=== PATIENT | female | born 1945 | race Caucasian/White ===

== ENCOUNTER → 2017-01-17 | Outpatient (CLI) | payer MEDICARE, OTHER ==
--- NOTE | 2017-01-17 11:04 | KCIC ---
PROCEDURE Left lower extremity venous Doppler sonogram. HISTORY Swelling. TECHNIQUE Grayscale and color Doppler sonographic imaging of the left lower extremity veins with spectral waveform analysis was performed. COMPARISON None. FINDINGS There is normal color flow, normal compressibility and there are normal spectral waveforms within the left lower extremity veins. There is a prominent left inguinal lymph node with benign appearing fatty hilum measuring 2.4 x 1.9 x 1.1 cm. IMPRESSION 1. No Doppler evidence of left lower extremity venous thrombosis. 2. Prominent benign-appearing left inguinal lymph node. Electronically signed by: Christina Acosta (Jan 17, 2017 11:02:25)
== END | disposition home or self-care (01) ==
LOC: KCIC US 09:50
PROVIDERS: ATTEND Family Medicine
DX: M79.89 Other specified soft tissue disorders (principal)
CPT/HCPCS: 93971

== ENCOUNTER → 2017-02-22 | Outpatient (CLI) | payer MEDICARE, OTHER ==
--- NOTE | 2017-02-22 10:57 | KCIC ---
EXAM: Abdomen and pelvis CT without intravenous contrast. HISTORY: Pelvic lymphadenopathy. TECHNIQUE: Computed tomographic images of the abdomen and pelvis were obtained without contrast. Multiplanar reformatting was performed. *One or more of the following individualized dose reduction techniques were utilized for this examination: 1. Automated exposure control. 2. Adjustment of the mA and/or kV according to patient size. 3. Use of iterative reconstruction technique. COMPARISON: Lower extremity venous Doppler sonogram dated 01/17/2017. FINDINGS: Evaluation of the lower thorax demonstrates a 3 mm groundglass nodular opacity within the right lobe along the pleural fissure, likely a benign fissural lymph node. No suspicious nodule is seen. There is no infiltrate or effusion. There is suspected hepatic steatosis and mild hepatomegaly. The gallbladder, pancreas, spleen and adrenal glands are unremarkable. There is a 7.1 cm cyst with possible thin internal septation within the lower pole of the right kidney. There is a 9 mm fat density lesion within the upper pole the left kidney, likely angiomyolipoma. There is a punctate calcification within the lower pole the right kidney. There is no appendicitis. There is extensive colonic diverticulosis without evidence of diverticulitis. There is moderate colonic stool. There is no evidence of bowel obstruction. The uterus, ovaries and bladder are unremarkable on this noncontrast exam. There are multiple pelvic phleboliths. There are prominent mesenteric, retroperitoneal and iliac chain lymph nodes, possibly physiologic or reactive. There are also prominent inguinal lymph nodes. These demonstrate benign-appearing fatty dann. No lymph node with suspicious morphology is seen. There is degenerative change throughout the spine. There is no suspicious osseous lesion. IMPRESSION: 1. Multiple prominent mesenteric, retroperitoneal, iliac chain and inguinal lymph nodes. These are nonspecific and not clearly pathologically enlarged. The inguinal lymph nodes demonstrate benign-appearing fatty dann. Follow-up can be performed if there is continuing clinical concern. 2. Hepatomegaly and hepatic steatosis. 3. Extensive colonic diverticulosis without diverticulitis. 4. 7.1 cm cyst within the lower pole of the right kidney. This may contain a thin internal septation. Renal sonography can be performed to confirm benignity. There is a punctate nonobstructing calcification along the cyst wall. 5. 9 mm fat density lesion within the upper pole the left kidney, possibly an angiomyolipoma. Once again, renal sonography or a renal protocol CT or MRI can be performed to confirm benignity. Electronically signed by: Christina Acosta MD (02/22/2017 10:53 AM)
== END | disposition home or self-care (01) ==
LOC: KCIC CT 09:01
PROVIDERS: ATTEND Family Medicine
DX: R59.0 Localized enlarged lymph nodes (principal)
CPT/HCPCS: 74176

== ENCOUNTER → 2017-02-28 | Outpatient (CLI) | payer MEDICARE, OTHER ==
--- NOTE | 2017-02-28 10:53 | KCIC ---
Exam: Renal ultrasound Indication: Abnormality on CT Technique: Multiple realtime grayscale sonographic images were obtained over the abdomen. Static images were submitted for interpretation. Comparisons: CT abdomen and pelvis from February 22, 2017 Findings: The Right kidney is normal in size measuring 13.5 x 4.5 x 5.0cm. There is a lower pole cyst that measures 6.3 x 6.1 x 5.9 cm and demonstrates some internal septation and minimal calcification.. The Left kidney is normal in size measuring 13.2 x 4.8 x 5.4cm. There is a echogenic mass in the upper pole and measures 1.5 x 1.0 x 1.3 cm. The abdominal aorta is normal in caliber. The IVC is patent. No ascites is identified The urinary bladder is normal Impression: There is a 1.5 cm echogenic mass in the upper pole left kidney most consistent with an angiomyolipoma. There is a 6.3 cm mildly complex cyst in the lower pole right kidney. This is Bosniak category 2F and follow-up is recommended. Electronically signed by: Chito Márquez MD (02/28/2017 10:51 AM)
== END | disposition home or self-care (01) ==
LOC: KCIC US 09:33
PROVIDERS: ATTEND Family Medicine
DX: N28.1 Cyst of kidney, acquired (principal); R93.8 Abnormal findings on diagnostic imaging of other specified body structures
CPT/HCPCS: 76770

== ENCOUNTER → 2017-10-28 | Outpatient (CLI) | payer MEDICARE, OTHER | END | disposition home or self-care (01) | LOC: US 08:34 | DX: N28.1 Cyst of kidney, acquired (principal) | CPT/HCPCS: 76770 ==

== ENCOUNTER → 2020-07-06 | Outpatient (CLI) | payer MEDICARE ==
--- NOTE | 2020-07-06 16:52 | RAD ---
Examination: 1. Ultrasound-guided right breast biopsy. 2. Right postprocedure mammogram INDICATION: 74-year-old woman with a suspicious mass in the right breast recommended for biopsy. COMPARISON: Right breast ultrasound of 06/16/2020 and bilateral screening mammogram of 06/16/2020 TECHNIQUE AND FINDINGS: An appropriate procedural pause was observed after informed consent was obtained. Standard sterile technique, ultrasound guidance and local anesthesia was utilized in advancing a 14-gauge spring-loaded core needle biopsy device into the right breast at the 11:00 position 4 cm from the nipple where 3 samples were obtained of the 12 mm mass and placed in formalin. An open padlock-shaped biopsy marker was deployed at the biopsy site and hemostasis was ensured with direct breast compression for 10 minutes. Puncture site was then dressed and a postprocedure mammogram obtained showing satisfactory deployment of the open padlock shaped biopsy marker in the anterior upper outer right breast. No postbiopsy hematoma. No apparent complications. Patient tolerated the procedure without incident. Post procedure instructions reviewed in a patient discharged in stable condition to follow up with her referring physician. IMPRESSION: Successful ultrasound-guided right breast core needle biopsy of a suspicious 1.2 cm mass in the right breast 11:00 position 4 cm from the nipple. Pathology results pending. An addendum will be issued once pathology results become available. Electronically signed by: Ghassan Vasques MD (07/06/2020 4:49 PM) [id number]
--- NOTE | 2020-07-11 13:08 | PATHOLOGY ---
[facility] Accession Number: [id number] . 01 Material submitted: . breast - RIGHT BREAST TISSUE 11:00 4CMFN. Modifiers: right, 11:00 . 01 Clinical history: . RIGHT BREAST MASS 11:00 4CMFN, ABNORMAL MAMMOGRAM RIGHT BREAST . 02 Diagnosis: Breast "mass 11:00 - 4 cm FN", needle biopsy: - INVASIVE MAMMARY CARCINOMA, WITH DUCTAL AND LOBULAR FEATURES (LOW GRADE, TOTAL SCORE 5/9). - DUCTAL CARCINOMA IN SITU (DCIS), SOLID TYPE (LOW GRADE, I/III) - Tumor span 7 mm. - Histologic grade (tubular differentation - score 2, nuclear pleomorphism - score 2, mitotic activity - score 1). - Focal microcalcification. . . Block A1 is sent for tumor biomarkers and the results will be the subject of a supplemental report. (MLK:felicity; 07/07/2020) S 07/11/2020 1259 Local . 02 Comment: The case is seen in co-review with Dr. Diana Lerner. Dr. Gonsalves is informed of the results on 07/11/2020. (MLK:felicity; 07/07/2020) . 02 Electronically signed: . Analilia Mcintosh MD, Pathologist NPI- [id number] . 01 Gross description: . The specimen is received in formalin, labeled "Ranjana Olivas, right breast 11:00 4 cm from nipple". Received are multiple needle cores of fibrofatty tissue measuring 1.3 x 0.6 x 0.2 cm in aggregate dimensions. The specimen is submitted entirely in cassettes A1 through A3. The cold ischemic time is 1 minute. The total formalin fixation time is 12 hours and 32 minutes. (CAA; 07/06/2020) QAC/QAC 07/06/2020 1721 Local . 02 Pathologist provided ICD-10: C50.911, D05.11 . 02 CPT . 169625 Specimen Comment: A courtesy copy of this report has been sent to [phone], [phone] Specimen Comment: [id number], Specimen Comment: Report sent to ,DR GONSALVES / DR WOOTEN Performed at: [address], [place] [id number] MD Jewel Stone MD Phone: [phone] [facility]formed at: [facility] [address] [place] [id number] MD Urbano Aguirre MD Phone: [phone]
== END ==
LOC: US 07:52
PROVIDERS: ATTEND Surgery
DX: C50.911 Malignant neoplasm of unspecified site of right female breast (principal); R92.8 Other abnormal and inconclusive findings on diagnostic imaging of breast; Z79.899 Other long term (current) drug therapy
CPT/HCPCS: 19083; 76942; 77065; 88305

== ENCOUNTER → 2020-08-05 | Outpatient (CLI) | payer MEDICARE ==
[~2020-08-05] MED LIST: ALLO100T PO; AMLO-187 PO; ASPI-630 PO; BENA1TAB6 PO; CHOL500050 PO; GLIP5TAB22 PO; METF750T39 PO; METO-247 PO
== END ==
LOC: LAB 13:58
PROVIDERS: ATTEND Surgery
DX: Z01.812 Encounter for preprocedural laboratory examination (principal); C50.911 Malignant neoplasm of unspecified site of right female breast; Z20.828 Contact with and (suspected) exposure to other viral communicable diseases
CPT/HCPCS: U0003

== ENCOUNTER → 2020-09-15 | Outpatient (CLI) | payer MEDICARE ==
[2020-09-06 10:41] VITALS: BP 126/72
[~2020-09-15] MED LIST changes: +HYDR-2761 PO
--- NOTE | 2020-09-15 13:04 | CARD ---
MR#: [id number] Date of Study: 09/15/2020 Ordering Physician: CRESENCIO PIERCE, Referring Physician: CRESENCIO PIERCE, Tech: Marleen Bagley [facility] APPROVED REPORT EXAM: Two-dimensional and M-mode echocardiogram with Doppler and color Doppler. Other Information Quality : Fair INDICATION Breast Cancer s/p Right Mastectomy 2D DIMENSIONS Left Atrium(2D)2.8 (1.6-4.0cm)IVSd1.0 (0.7-1.1cm) Aortic Root(2D)3.1 (2.0-3.7cm)LVDd4.6 (3.9-5.9cm) LVOT Diameter2.1 (1.8-2.4cm)PWd1.0 (0.7-1.1cm) LVDs3.4 (2.5-4.0cm)FS (%) 25.8 % SV50.4 mlLVEF(%)50.8 (>50%) Aortic Valve AoV Peak Yared.178.4cm/sAoV VTI31.4cm AO Peak GR.12.7mmHgLVOT Peak Yared.161.9cm/s LVOT VTI 32.15cmAO Mean GR.6mmHg WALTER (VMAX)3.86gg2BIB (VTI)3.55cm2 Mitral Valve MV E Cklowdfb55.7cm/sMV DECEL YAOT187kq MV A Dojetbzq94.1cm/sMV BCT53ff E/A Ratio0.7MVA (PHT)3.64cm2 TDI E/Lateral E'10.8E/Medial E'10.6 Tricuspid Valve TR P. Nrudmegk881ci/sRAP QWVXNLFS4cbGk TR Peak Gr.50veFvLTBO24sxHo Pulmonary Vein S1 Tzkhgqyp38.6cm/sD2 Ogvryips33.5cm/s LEFT VENTRICLE The left ventricle is normal size. There is normal left ventricular wall thickness. The left ventricu lar systolic function is normal. The Ejection Fraction is 55-60%. There is normal LV segmental wall m otion. Transmitral Doppler flow pattern is Grade I-abnormal relaxation pattern. RIGHT VENTRICLE The right ventricle is normal size. The right ventricular systolic function is normal. ATRIA The left atrium size is normal. The right atrium size is normal. The interatrial septum is intact wit h no evidence for an atrial septal defect or patent foramen ovale as noted on 2-D or Doppler imaging. AORTIC VALVE The aortic valve is calcified but difficult to visualize. Doppler and Color Flow revealed no signific ant aortic regurgitation. There is no aortic valvular vegetation. MITRAL VALVE The mitral valve is calcified but opens well. There is no evidence of mitral valve prolapse. There is no mitral valve stenosis. Doppler and Color-flow revealed trace mitral regurgitation. TRICUSPID VALVE The tricuspid valve is normal in structure and function. Doppler and Color Flow revealed trace tricus pid regurgitation. The PA pressure was estimated at 25 mmHg. There is no tricuspid valve stenosis. PULMONIC VALVE The pulmonic valve is not well visualized. Doppler and Color Flow revealed no pulmonic valvular regur gitation. There is no pulmonic valvular stenosis. GREAT VESSELS The aortic root is normal in size. The ascending aorta is mildly dilated at 3.5 cm. The IVC is normal in size and collapses >50% with inspiration. PERICARDIAL EFFUSION There is no evidence of significant pericardial effusion. Critical Notification Critical Value: No <Conclusion> The left ventricular systolic function is normal. The Ejection Fraction is 55-60%. There is normal LV segmental wall motion. Transmitral Doppler flow pattern is Grade I-abnormal relaxation pattern. Trace mitral regurgitation. Trace tricuspid regurgitation. The PA pressure was estimated at 25 mmHg. There is no evidence of significant pericardial effusion. Signed by : Wander Zarco, Electronically Approved : 09/15/2020 13:03:56
== END ==
LOC: CARD 10:51
PROVIDERS: ATTEND Internal Medicine Hematology & Oncology
DX: I08.0 Rheumatic disorders of both mitral and aortic valves (principal); I77.810 Thoracic aortic ectasia; Z85.3 Personal history of malignant neoplasm of breast
CPT/HCPCS: 93306

== ENCOUNTER → 2020-09-19 | Outpatient (CLI) | payer MEDICARE ==
[2020-09-06 10:41] VITALS: BP 126/72
[2020-09-19 10:59] LABS: BASO # 0.1 x10^3/uL (0.0-0.2); BASO % 1 % (0-3); EOS # 0.3 x10^3/uL (0.0-0.7); EOS % 4 % (0-3); HEMATOCRIT 38.1 % (36.0-47.0); LYMPH # 1.9 x10^3/uL (1.0-4.8); LYMPH % 23 % (24-48); MEAN CORPUSCULAR HEMOGLOBIN 31 pg (25-35); MEAN CORPUSCULAR HGB CONC 34 g/dL (31-37); MEAN CORPUSCULAR VOLUME 89 fL (79-100); MONO # 0.4 x10^3/uL (0.0-1.1); MONO % 5 % (0-9); NEUT # 5.5 x10^3/uL (1.8-7.7); NEUT % 67 % (31-73); PLATELET COUNT 251 x10^3/uL (140-400); RED BLOOD COUNT 4.26 x10^6/uL (3.50-5.40); RED CELL DISTRIBUTION WIDTH 13.9 % (11.5-14.5); WHITE BLOOD COUNT 8.2 x10^3/uL (4.0-11.0)
[2020-09-19 11:16] LABS: CALCIUM 9.3 mg/dL (8.5-10.1); CREATININE 0.9 mg/dL (0.6-1.0); GFR 61.4; POTASSIUM 3.2 mmol/L (3.5-5.1)
[2020-09-19 11:23] LABS: ALBUMIN 3.3 g/dL (3.4-5.0); ALBUMIN/GLOBULIN RATIO 0.9 (1.0-1.7); TOTAL PROTEIN 6.8 g/dL (6.4-8.2)
== END ==
LOC: ONCLAB 10:49
PROVIDERS: ATTEND Internal Medicine Hematology & Oncology
DX: C50.411 Malignant neoplasm of upper-outer quadrant of right female breast (principal)
CPT/HCPCS: 36415; 80053; 85025

== ENCOUNTER → 2020-10-12 | Outpatient (CLI) | payer MEDICARE ==
[2020-09-06 10:41] VITALS: BP 126/72
[2020-10-12 10:54] LABS: BASO % 1 % (0-3); EOS # 0.2 x10^3/uL (0.0-0.7); EOS % 3 % (0-3); HEMATOCRIT 40.9 % (36.0-47.0); HEMOGLOBIN 13.5 g/dL (12.0-15.5); LYMPH # 1.9 x10^3/uL (1.0-4.8); LYMPH % 28 % (24-48); MEAN CORPUSCULAR HEMOGLOBIN 30 pg (25-35); MEAN CORPUSCULAR HGB CONC 33 g/dL (31-37); MEAN CORPUSCULAR VOLUME 90 fL (79-100); MONO # 0.5 x10^3/uL (0.0-1.1); MONO % 7 % (0-9); NEUT # 4.3 x10^3/uL (1.8-7.7); NEUT % 62 % (31-73); PLATELET COUNT 245 x10^3/uL (140-400); RED BLOOD COUNT 4.55 x10^6/uL (3.50-5.40); RED CELL DISTRIBUTION WIDTH 13.9 % (11.5-14.5); WHITE BLOOD COUNT 6.9 x10^3/uL (4.0-11.0)
[2020-10-12 11:00] LABS: CALCIUM 9.6 mg/dL (8.5-10.1); GFR 54.3; POTASSIUM 3.2 mmol/L (3.5-5.1)
[2020-10-12 11:05] LABS: ALBUMIN 3.7 g/dL (3.4-5.0); TOTAL BILIRUBIN 1.7 mg/dL (0.2-1.0); TOTAL PROTEIN 7.3 g/dL (6.4-8.2)
== END ==
LOC: ONCLAB 10:38
PROVIDERS: ATTEND Internal Medicine Hematology & Oncology
DX: C50.411 Malignant neoplasm of upper-outer quadrant of right female breast (principal)
CPT/HCPCS: 36415; 80053; 85025

== ENCOUNTER → 2020-10-19 | Outpatient (CLI) | payer MEDICARE ==
[2020-09-06 10:41] VITALS: BP 126/72
[2020-10-19 09:40] LABS: BASO # 0.1 x10^3/uL (0.0-0.2); BASO % 1 % (0-3); EOS # 0.2 x10^3/uL (0.0-0.7); EOS % 3 % (0-3); HEMATOCRIT 37.1 % (36.0-47.0); HEMOGLOBIN 12.4 g/dL (12.0-15.5); LYMPH # 1.6 x10^3/uL (1.0-4.8); LYMPH % 30 % (24-48); MEAN CORPUSCULAR HEMOGLOBIN 30 pg (25-35); MEAN CORPUSCULAR HGB CONC 33 g/dL (31-37); MEAN CORPUSCULAR VOLUME 89 fL (79-100); MONO # 0.2 x10^3/uL (0.0-1.1); MONO % 3 % (0-9); NEUT # 3.4 x10^3/uL (1.8-7.7); NEUT % 62 % (31-73); PLATELET COUNT 229 x10^3/uL (140-400); RED BLOOD COUNT 4.16 x10^6/uL (3.50-5.40); RED CELL DISTRIBUTION WIDTH 13.3 % (11.5-14.5); WHITE BLOOD COUNT 5.4 x10^3/uL (4.0-11.0)
[2020-10-19 09:56] LABS: CALCIUM 9.4 mg/dL (8.5-10.1); CREATININE 0.9 mg/dL (0.6-1.0); GFR 61.4; POTASSIUM 3.4 mmol/L (3.5-5.1)
[2020-10-19 10:03] LABS: ALBUMIN 3.5 g/dL (3.4-5.0); TOTAL BILIRUBIN 1.4 mg/dL (0.2-1.0); TOTAL PROTEIN 6.9 g/dL (6.4-8.2)
== END ==
LOC: ONCLAB 09:24
PROVIDERS: ATTEND Internal Medicine Hematology & Oncology
DX: C50.411 Malignant neoplasm of upper-outer quadrant of right female breast (principal)
CPT/HCPCS: 36415; 80053; 85025

== ENCOUNTER → 2020-10-26 | Outpatient (CLI) | payer MEDICARE ==
[2020-09-06 10:41] VITALS: BP 126/72
[2020-10-26 09:52] LABS: BASO % 1 % (0-3); EOS # 0.1 x10^3/uL (0.0-0.7); EOS % 4 % (0-3); HEMATOCRIT 36.6 % (36.0-47.0); HEMOGLOBIN 12.1 g/dL (12.0-15.5); LYMPH # 1.4 x10^3/uL (1.0-4.8); LYMPH % 35 % (24-48); MEAN CORPUSCULAR HEMOGLOBIN 30 pg (25-35); MEAN CORPUSCULAR HGB CONC 33 g/dL (31-37); MEAN CORPUSCULAR VOLUME 91 fL (79-100); MONO # 0.3 x10^3/uL (0.0-1.1); MONO % 7 % (0-9); NEUT # 2.2 x10^3/uL (1.8-7.7); NEUT % 53 % (31-73); PLATELET COUNT 234 x10^3/uL (140-400); RED BLOOD COUNT 4.05 x10^6/uL (3.50-5.40); WHITE BLOOD COUNT 4.1 x10^3/uL (4.0-11.0)
[2020-10-26 09:58] LABS: CALCIUM 8.9 mg/dL (8.5-10.1); CREATININE 0.9 mg/dL (0.6-1.0); GFR 61.4; POTASSIUM 3.1 mmol/L (3.5-5.1)
[2020-10-26 10:05] LABS: ALBUMIN 3.4 g/dL (3.4-5.0); ALBUMIN/GLOBULIN RATIO 1.1 (1.0-1.7); TOTAL PROTEIN 6.6 g/dL (6.4-8.2)
== END ==
LOC: ONCLAB 08:30
PROVIDERS: ATTEND Physician Assistant
DX: C50.411 Malignant neoplasm of upper-outer quadrant of right female breast (principal)
CPT/HCPCS: 36415; 80053; 85025

== ENCOUNTER → 2020-10-26 | Outpatient (CLI) | payer MEDICARE ==
[2020-09-06 10:41] VITALS: BP 126/72
[2020-10-26 10:05] LABS: ALBUMIN 3.4 g/dL (3.4-5.0); CREATININE 0.9 mg/dL (0.6-1.0); GFR 61.4; PHOSPHORUS 2.9 mg/dL (2.6-4.7); POTASSIUM 3.1 mmol/L (3.5-5.1)
[2020-10-26 10:06] LABS: CALCIUM 8.9 mg/dL (8.5-10.1)
[2020-10-26 11:21] LABS: CREATININE,RANDOM URINE 89.6 mg/dL (Not Establ.)
== END ==
LOC: SPEC 09:10
PROVIDERS: ATTEND Nurse Practitioner Adult Health
DX: E11.21 Type 2 diabetes mellitus with diabetic nephropathy (principal); N28.1 Cyst of kidney, acquired; I10 Essential (primary) hypertension; R80.9 Proteinuria, unspecified; Z68.32 Body mass index [BMI] 32.0-32.9, adult
CPT/HCPCS: 36415; 80069; 82570; 84156

== ENCOUNTER → 2020-11-02 | Outpatient (CLI) | payer MEDICARE ==
[2020-09-06 10:41] VITALS: BP 126/72
[2020-11-02 09:22] LABS: BASO % 1 % (0-3); EOS # 0.1 x10^3/uL (0.0-0.7); EOS % 2 % (0-3); HEMATOCRIT 37.8 % (36.0-47.0); HEMOGLOBIN 12.6 g/dL (12.0-15.5); LYMPH # 1.6 x10^3/uL (1.0-4.8); LYMPH % 35 % (24-48); MEAN CORPUSCULAR HEMOGLOBIN 30 pg (25-35); MEAN CORPUSCULAR HGB CONC 33 g/dL (31-37); MEAN CORPUSCULAR VOLUME 90 fL (79-100); MONO # 0.3 x10^3/uL (0.0-1.1); MONO % 7 % (0-9); NEUT # 2.6 x10^3/uL (1.8-7.7); NEUT % 56 % (31-73); PLATELET COUNT 277 x10^3/uL (140-400); RED BLOOD COUNT 4.19 x10^6/uL (3.50-5.40); RED CELL DISTRIBUTION WIDTH 14.5 % (11.5-14.5); WHITE BLOOD COUNT 4.7 x10^3/uL (4.0-11.0)
[2020-11-02 09:28] LABS: CALCIUM 9.3 mg/dL (8.5-10.1); CREATININE 0.8 mg/dL (0.6-1.0); GFR 70.3; POTASSIUM 3.7 mmol/L (3.5-5.1)
[2020-11-02 09:36] LABS: ALBUMIN 3.5 g/dL (3.4-5.0); ALBUMIN/GLOBULIN RATIO 1.1 (1.0-1.7); TOTAL BILIRUBIN 1.1 mg/dL (0.2-1.0); TOTAL PROTEIN 6.7 g/dL (6.4-8.2)
== END ==
LOC: ONCLAB 08:50
PROVIDERS: ATTEND Internal Medicine Hematology & Oncology
DX: C50.411 Malignant neoplasm of upper-outer quadrant of right female breast (principal)
CPT/HCPCS: 36415; 80053; 85025

== ENCOUNTER → 2020-11-09 | Outpatient (CLI) | payer MEDICARE ==
[2020-09-06 10:41] VITALS: BP 126/72
[2020-11-09 10:22] LABS: CALCIUM 9.4 mg/dL (8.5-10.1); GFR 54.3; POTASSIUM 3.6 mmol/L (3.5-5.1)
[2020-11-09 10:28] LABS: ALBUMIN 3.4 g/dL (3.4-5.0); ALBUMIN/GLOBULIN RATIO 1.1 (1.0-1.7); TOTAL BILIRUBIN 1.1 mg/dL (0.2-1.0); TOTAL PROTEIN 6.6 g/dL (6.4-8.2)
[2020-11-09 10:29] LABS: BASO % 1 % (0-3); EOS # 0.1 x10^3/uL (0.0-0.7); EOS % 2 % (0-3); HEMATOCRIT 37.4 % (36.0-47.0); HEMOGLOBIN 12.3 g/dL (12.0-15.5); LYMPH # 1.6 x10^3/uL (1.0-4.8); LYMPH % 34 % (24-48); MEAN CORPUSCULAR HEMOGLOBIN 30 pg (25-35); MEAN CORPUSCULAR HGB CONC 33 g/dL (31-37); MEAN CORPUSCULAR VOLUME 91 fL (79-100); MONO # 0.3 x10^3/uL (0.0-1.1); MONO % 7 % (0-9); NEUT # 2.7 x10^3/uL (1.8-7.7); NEUT % 57 % (31-73); PLATELET COUNT 238 x10^3/uL (140-400); RED BLOOD COUNT 4.11 x10^6/uL (3.50-5.40); RED CELL DISTRIBUTION WIDTH 14.9 % (11.5-14.5); WHITE BLOOD COUNT 4.8 x10^3/uL (4.0-11.0)
== END ==
LOC: ONCLAB 09:45
PROVIDERS: ATTEND Internal Medicine Hematology & Oncology
DX: C50.411 Malignant neoplasm of upper-outer quadrant of right female breast (principal)
CPT/HCPCS: 36415; 80053; 85025

== ENCOUNTER → 2020-11-16 | Outpatient (CLI) | payer MEDICARE ==
[2020-09-06 10:41] VITALS: BP 126/72
[2020-11-16 09:11] LABS: BASO % 1 % (0-3); EOS # 0.1 x10^3/uL (0.0-0.7); EOS % 2 % (0-3); HEMATOCRIT 37.9 % (36.0-47.0); HEMOGLOBIN 12.5 g/dL (12.0-15.5); LYMPH # 1.4 x10^3/uL (1.0-4.8); LYMPH % 32 % (24-48); MEAN CORPUSCULAR HEMOGLOBIN 30 pg (25-35); MEAN CORPUSCULAR HGB CONC 33 g/dL (31-37); MEAN CORPUSCULAR VOLUME 91 fL (79-100); MONO # 0.3 x10^3/uL (0.0-1.1); MONO % 8 % (0-9); NEUT # 2.4 x10^3/uL (1.8-7.7); NEUT % 57 % (31-73); PLATELET COUNT 223 x10^3/uL (140-400); RED BLOOD COUNT 4.15 x10^6/uL (3.50-5.40); RED CELL DISTRIBUTION WIDTH 15.1 % (11.5-14.5); WHITE BLOOD COUNT 4.3 x10^3/uL (4.0-11.0)
[2020-11-16 09:26] LABS: CREATININE 0.9 mg/dL (0.6-1.0); GFR 61.4; POTASSIUM 3.4 mmol/L (3.5-5.1)
[2020-11-16 09:33] LABS: ALBUMIN 3.5 g/dL (3.4-5.0); ALBUMIN/GLOBULIN RATIO 1.1 (1.0-1.7); TOTAL BILIRUBIN 1.2 mg/dL (0.2-1.0); TOTAL PROTEIN 6.7 g/dL (6.4-8.2)
== END ==
LOC: ONCLAB 08:41
PROVIDERS: ATTEND Internal Medicine Hematology & Oncology
DX: C50.411 Malignant neoplasm of upper-outer quadrant of right female breast (principal)
CPT/HCPCS: 36415; 80053; 85025

== ENCOUNTER → 2020-11-16 | Outpatient (CLI) | payer MEDICARE ==
[2020-09-06 10:41] VITALS: BP 126/72
[2020-11-16 09:13] LABS: BASO % 1 % (0-3); EOS # 0.1 x10^3/uL (0.0-0.7); EOS % 2 % (0-3); HEMATOCRIT 37.3 % (36.0-47.0); HEMOGLOBIN 12.8 g/dL (12.0-15.5); LYMPH # 1.4 x10^3/uL (1.0-4.8); LYMPH % 32 % (24-48); MEAN CORPUSCULAR HEMOGLOBIN 31 pg (25-35); MEAN CORPUSCULAR HGB CONC 34 g/dL (31-37); MEAN CORPUSCULAR VOLUME 91 fL (79-100); MONO # 0.3 x10^3/uL (0.0-1.1); MONO % 7 % (0-9); NEUT # 2.5 x10^3/uL (1.8-7.7); NEUT % 58 % (31-73); PLATELET COUNT 219 x10^3/uL (140-400); RED CELL DISTRIBUTION WIDTH 15.5 % (11.5-14.5); WHITE BLOOD COUNT 4.3 x10^3/uL (4.0-11.0)
[2020-11-16 09:35] LABS: ALBUMIN 3.5 g/dL (3.4-5.0); ALBUMIN/GLOBULIN RATIO 1.1 (1.0-1.7); CALCIUM 8.9 mg/dL (8.5-10.1); CREATININE 0.9 mg/dL (0.6-1.0); GFR 61.4; POTASSIUM 3.5 mmol/L (3.5-5.1); TOTAL BILIRUBIN 1.2 mg/dL (0.2-1.0); TOTAL PROTEIN 6.8 g/dL (6.4-8.2)
[2020-11-17 03:13] LABS: HEMOGLOBIN A1C 5.9 % (4.8-5.6)
== END ==
LOC: SPEC 08:45
PROVIDERS: ATTEND Family Medicine
DX: E11.9 Type 2 diabetes mellitus without complications (principal); E55.9 Vitamin D deficiency, unspecified
CPT/HCPCS: 36415; 80053; 82306; 83036; 85025

== ENCOUNTER → 2020-11-23 | Outpatient (CLI) | payer MEDICARE ==
[2020-09-06 10:41] VITALS: BP 126/72
[2020-11-23 10:17] LABS: BASO % 1 % (0-3); EOS # 0.1 x10^3/uL (0.0-0.7); EOS % 2 % (0-3); HEMATOCRIT 36.6 % (36.0-47.0); HEMOGLOBIN 12.1 g/dL (12.0-15.5); LYMPH # 1.4 x10^3/uL (1.0-4.8); LYMPH % 31 % (24-48); MEAN CORPUSCULAR HEMOGLOBIN 30 pg (25-35); MEAN CORPUSCULAR HGB CONC 33 g/dL (31-37); MEAN CORPUSCULAR VOLUME 91 fL (79-100); MONO # 0.3 x10^3/uL (0.0-1.1); MONO % 7 % (0-9); NEUT # 2.7 x10^3/uL (1.8-7.7); NEUT % 59 % (31-73); PLATELET COUNT 236 x10^3/uL (140-400); RED BLOOD COUNT 4.02 x10^6/uL (3.50-5.40); RED CELL DISTRIBUTION WIDTH 15.6 % (11.5-14.5); WHITE BLOOD COUNT 4.6 x10^3/uL (4.0-11.0)
[2020-11-23 10:24] LABS: CALCIUM 8.9 mg/dL (8.5-10.1); GFR 54.3; POTASSIUM 3.4 mmol/L (3.5-5.1)
[2020-11-23 10:30] LABS: ALBUMIN 3.2 g/dL (3.4-5.0); TOTAL BILIRUBIN 1.1 mg/dL (0.2-1.0); TOTAL PROTEIN 6.3 g/dL (6.4-8.2)
== END ==
LOC: ONCLAB 09:59
PROVIDERS: ATTEND Internal Medicine Hematology & Oncology
DX: C50.411 Malignant neoplasm of upper-outer quadrant of right female breast (principal)
CPT/HCPCS: 36415; 80053; 85025

== ENCOUNTER → 2020-11-30 | Outpatient (CLI) | payer MEDICARE ==
[2020-09-06 10:41] VITALS: BP 126/72
[2020-11-30 09:27] LABS: BASO % 1 % (0-3); EOS # 0.1 x10^3/uL (0.0-0.7); EOS % 3 % (0-3); HEMATOCRIT 35.2 % (36.0-47.0); HEMOGLOBIN 11.8 g/dL (12.0-15.5); LYMPH # 1.4 x10^3/uL (1.0-4.8); LYMPH % 35 % (24-48); MEAN CORPUSCULAR HEMOGLOBIN 31 pg (25-35); MEAN CORPUSCULAR HGB CONC 34 g/dL (31-37); MEAN CORPUSCULAR VOLUME 91 fL (79-100); MONO # 0.3 x10^3/uL (0.0-1.1); MONO % 8 % (0-9); NEUT # 2.1 x10^3/uL (1.8-7.7); NEUT % 53 % (31-73); PLATELET COUNT 226 x10^3/uL (140-400); RED BLOOD COUNT 3.86 x10^6/uL (3.50-5.40); RED CELL DISTRIBUTION WIDTH 15.4 % (11.5-14.5)
[2020-11-30 09:41] LABS: CALCIUM 8.6 mg/dL (8.5-10.1); CREATININE 0.9 mg/dL (0.6-1.0); GFR 61.4; POTASSIUM 3.2 mmol/L (3.5-5.1)
[2020-11-30 09:48] LABS: ALBUMIN 3.3 g/dL (3.4-5.0); ALBUMIN/GLOBULIN RATIO 1.1 (1.0-1.7); TOTAL PROTEIN 6.2 g/dL (6.4-8.2)
== END ==
LOC: ONCLAB 09:10
PROVIDERS: ATTEND Internal Medicine Hematology & Oncology
DX: C50.411 Malignant neoplasm of upper-outer quadrant of right female breast (principal)
CPT/HCPCS: 36415; 80053; 85025

== ENCOUNTER → 2020-12-07 | Outpatient (CLI) | payer MEDICARE ==
[2020-09-06 10:41] VITALS: BP 126/72
[2020-12-07 10:35] LABS: BASO % 1 % (0-3); CALCIUM 8.7 mg/dL (8.5-10.1); CREATININE 1.1 mg/dL (0.6-1.0); EOS # 0.1 x10^3/uL (0.0-0.7); EOS % 2 % (0-3); GFR 48.6; HEMATOCRIT 35.3 % (36.0-47.0); HEMOGLOBIN 11.9 g/dL (12.0-15.5); LYMPH # 1.2 x10^3/uL (1.0-4.8); LYMPH % 30 % (24-48); MEAN CORPUSCULAR HEMOGLOBIN 31 pg (25-35); MEAN CORPUSCULAR HGB CONC 34 g/dL (31-37); MEAN CORPUSCULAR VOLUME 91 fL (79-100); MONO # 0.3 x10^3/uL (0.0-1.1); MONO % 8 % (0-9); NEUT # 2.5 x10^3/uL (1.8-7.7); NEUT % 60 % (31-73); PLATELET COUNT 227 x10^3/uL (140-400); POTASSIUM 3.3 mmol/L (3.5-5.1); RED CELL DISTRIBUTION WIDTH 16.1 % (11.5-14.5); WHITE BLOOD COUNT 4.1 x10^3/uL (4.0-11.0)
[2020-12-07 10:41] LABS: ALBUMIN 3.3 g/dL (3.4-5.0); ALBUMIN/GLOBULIN RATIO 1.1 (1.0-1.7); TOTAL BILIRUBIN 1.1 mg/dL (0.2-1.0); TOTAL PROTEIN 6.2 g/dL (6.4-8.2)
== END ==
LOC: ONCLAB 10:03
PROVIDERS: ATTEND Internal Medicine Hematology & Oncology
DX: C50.411 Malignant neoplasm of upper-outer quadrant of right female breast (principal)
CPT/HCPCS: 36415; 80053; 85025

== ENCOUNTER → 2020-12-14 | Outpatient (CLI) | payer MEDICARE ==
[2020-09-06 10:41] VITALS: BP 126/72
[2020-12-14 11:17] LABS: BASO % 1 % (0-3); EOS # 0.1 x10^3/uL (0.0-0.7); EOS % 2 % (0-3); HEMATOCRIT 36.1 % (36.0-47.0); HEMOGLOBIN 12.2 g/dL (12.0-15.5); LYMPH # 1.2 x10^3/uL (1.0-4.8); LYMPH % 26 % (24-48); MEAN CORPUSCULAR HEMOGLOBIN 31 pg (25-35); MEAN CORPUSCULAR HGB CONC 34 g/dL (31-37); MEAN CORPUSCULAR VOLUME 91 fL (79-100); MONO # 0.4 x10^3/uL (0.0-1.1); MONO % 8 % (0-9); NEUT % 64 % (31-73); PLATELET COUNT 230 x10^3/uL (140-400); RED BLOOD COUNT 3.98 x10^6/uL (3.50-5.40); RED CELL DISTRIBUTION WIDTH 15.9 % (11.5-14.5); WHITE BLOOD COUNT 4.7 x10^3/uL (4.0-11.0)
[2020-12-14 11:24] LABS: CALCIUM 8.7 mg/dL (8.5-10.1); GFR 54.2; POTASSIUM 3.3 mmol/L (3.5-5.1)
[2020-12-14 11:30] LABS: ALBUMIN 3.3 g/dL (3.4-5.0); ALBUMIN/GLOBULIN RATIO 1.1 (1.0-1.7); TOTAL BILIRUBIN 1.1 mg/dL (0.2-1.0); TOTAL PROTEIN 6.4 g/dL (6.4-8.2)
== END ==
LOC: ONCLAB 10:45
PROVIDERS: ATTEND Internal Medicine Hematology & Oncology
DX: C50.411 Malignant neoplasm of upper-outer quadrant of right female breast (principal)
CPT/HCPCS: 36415; 80053; 85025

== ENCOUNTER → 2020-12-14 | Outpatient (CLI) | payer MEDICARE ==
[2020-09-06 10:41] VITALS: BP 126/72
--- NOTE | 2020-12-14 15:48 | CARD ---
MR#: [id number] Date of Study: 12/14/2020 Ordering Physician: HEIDI HI, Referring Physician: HEIDI HI, Tech: Christine Crump, [facility] APPROVED REPORT EXAM: Two-dimensional and M-mode echocardiogram with Doppler and color Doppler. Other Information Quality : AverageHR: 72bpm INDICATION Invasive carcinoma of Mammary Ducts 2D DIMENSIONS Left Atrium(2D)3.0 (1.6-4.0cm)IVSd0.9 (0.7-1.1cm) Aortic Root(2D)3.2 (2.0-3.7cm)LVDd5.7 (3.9-5.9cm) LVOT Diameter2.0 (1.8-2.4cm)PWd0.9 (0.7-1.1cm) LVDs3.6 (2.5-4.0cm)FS (%) 36.4 % SV102.9 mlLVEF(%)60.4 (>50%) Aortic Valve AoV Peak Yared.174.4cm/sAoV VTI39.0cm AO Peak GR.12.2mmHgLVOT Peak Yared.157.0cm/s AO Mean GR.7mmHgAVA (VMAX)2.73cm2 Mitral Valve MV E Cfidsfkm20.6cm/sMV DECEL FTVY433en MV A Gvzghwvs995.2cm/sE/A Ratio0.9 Pulmonary Valve PV Peak Dsxtjupt86.1cm/s Tricuspid Valve TR P. Hhwohrdx974wd/sRAP IQYENEIV9bgOx TR Peak Gr.33rzQdZVJP18ciKy LEFT VENTRICLE The left ventricle is normal size. There is normal left ventricular wall thickness. The left ventricu lar systolic function is normal. The Ejection Fraction is 55%. GLS -16.2. There is normal LV segmenta l wall motion. Transmitral Doppler flow pattern is Grade I-abnormal relaxation pattern. RIGHT VENTRICLE The right ventricle is normal size. There is normal right ventricular wall thickness. The right ventr icular systolic function is normal. ATRIA The left atrium size is normal. The right atrium size is normal. The interatrial septum is intact wit h no evidence for an atrial septal defect or patent foramen ovale as noted on 2-D or Doppler imaging. AORTIC VALVE The aortic valve is normal in structure and function. Doppler and Color Flow revealed no significant aortic regurgitation. Calculated aortic valve area is 2.8 cm2 with maximum pressure gradient of 13 mm Hg and mean pressure gradient of 7 mmHg. There is no significant aortic valvular stenosis. MITRAL VALVE The mitral valve is normal in structure and function. There is no evidence of mitral valve prolapse. There is no mitral valve stenosis. Doppler and Color-flow revealed trace mitral regurgitation. TRICUSPID VALVE The tricuspid valve is normal in structure and function. Doppler and Color Flow revealed trace tricus pid regurgitation with an estimated PAP of 29 mmHg. There is no tricuspid valve stenosis. PULMONIC VALVE The pulmonic valve is not well visualized. Doppler and Color Flow revealed no pulmonic valvular regur gitation. GREAT VESSELS The aortic root is normal in size. The IVC is normal in size and collapses >50% with inspiration. PERICARDIAL EFFUSION There is no evidence of significant pericardial effusion. Critical Notification Critical Value: No <Conclusion> The left ventricular systolic function is normal. The Ejection Fraction is 55%. GLS -16.2. There is normal LV segmental wall motion. Transmitral Doppler flow pattern is Grade I-abnormal relaxation pattern. Trace mitral regurgitation. Trace tricuspid regurgitation with an estimated PAP of 29 mmHg. There is no evidence of significant pericardial effusion. Signed by : Wander Zarco, Electronically Approved : 12/14/2020 15:47:56
== END ==
LOC: ECHO 14:04
PROVIDERS: ATTEND Physician Assistant
DX: C50.411 Malignant neoplasm of upper-outer quadrant of right female breast (principal)
CPT/HCPCS: 93306

== ENCOUNTER → 2020-12-21 | Outpatient (CLI) | payer MEDICARE ==
[2020-09-06 10:41] VITALS: BP 126/72
[2020-12-21 11:16] LABS: CALCIUM 8.2 mg/dL (8.5-10.1); CREATININE 0.9 mg/dL (0.6-1.0); GFR 61.2
[2020-12-21 11:21] LABS: BASO % 1 % (0-3); EOS # 0.1 x10^3/uL (0.0-0.7); EOS % 2 % (0-3); HEMATOCRIT 36.5 % (36.0-47.0); HEMOGLOBIN 12.2 g/dL (12.0-15.5); LYMPH # 1.3 x10^3/uL (1.0-4.8); LYMPH % 33 % (24-48); MEAN CORPUSCULAR HEMOGLOBIN 31 pg (25-35); MEAN CORPUSCULAR HGB CONC 33 g/dL (31-37); MEAN CORPUSCULAR VOLUME 92 fL (79-100); MONO # 0.3 x10^3/uL (0.0-1.1); MONO % 7 % (0-9); NEUT # 2.3 x10^3/uL (1.8-7.7); NEUT % 58 % (31-73); PLATELET COUNT 205 x10^3/uL (140-400); RED BLOOD COUNT 3.98 x10^6/uL (3.50-5.40); RED CELL DISTRIBUTION WIDTH 16.8 % (11.5-14.5); WHITE BLOOD COUNT 3.9 x10^3/uL (4.0-11.0)
[2020-12-21 11:23] LABS: ALBUMIN 3.4 g/dL (3.4-5.0); ALBUMIN/GLOBULIN RATIO 1.2 (1.0-1.7); TOTAL BILIRUBIN 0.9 mg/dL (0.2-1.0); TOTAL PROTEIN 6.3 g/dL (6.4-8.2)
== END ==
LOC: ONCLAB 10:34
PROVIDERS: ATTEND Internal Medicine Hematology & Oncology
DX: C50.411 Malignant neoplasm of upper-outer quadrant of right female breast (principal)
CPT/HCPCS: 36415; 80053; 85025

== ENCOUNTER → 2020-12-28 | Outpatient (CLI) | payer MEDICARE ==
[2020-09-06 10:41] VITALS: BP 126/72
[2020-12-28 11:25] LABS: BASO % 1 % (0-3); EOS % 1 % (0-3); HEMATOCRIT 35.6 % (36.0-47.0); HEMOGLOBIN 11.9 g/dL (12.0-15.5); LYMPH # 0.8 x10^3/uL (1.0-4.8); LYMPH % 21 % (24-48); MEAN CORPUSCULAR HEMOGLOBIN 30 pg (25-35); MEAN CORPUSCULAR HGB CONC 33 g/dL (31-37); MEAN CORPUSCULAR VOLUME 91 fL (79-100); MONO # 0.3 x10^3/uL (0.0-1.1); MONO % 8 % (0-9); NEUT # 2.6 x10^3/uL (1.8-7.7); NEUT % 69 % (31-73); PLATELET COUNT 207 x10^3/uL (140-400); RED BLOOD COUNT 3.91 x10^6/uL (3.50-5.40); RED CELL DISTRIBUTION WIDTH 16.5 % (11.5-14.5); WHITE BLOOD COUNT 3.7 x10^3/uL (4.0-11.0)
[2020-12-28 11:27] LABS: CALCIUM 8.9 mg/dL (8.5-10.1); CREATININE 0.9 mg/dL (0.6-1.0); GFR 61.2; POTASSIUM 3.7 mmol/L (3.5-5.1)
[2020-12-28 11:32] LABS: ALBUMIN 3.3 g/dL (3.4-5.0); TOTAL BILIRUBIN 1.9 mg/dL (0.2-1.0); TOTAL PROTEIN 6.6 g/dL (6.4-8.2)
== END ==
LOC: ONCLAB 10:49
PROVIDERS: ATTEND Internal Medicine Hematology & Oncology
DX: C50.411 Malignant neoplasm of upper-outer quadrant of right female breast (principal)
CPT/HCPCS: 36415; 80053; 85025

== ENCOUNTER → 2021-01-04 | Outpatient (CLI) | payer MEDICARE ==
[2020-09-06 10:41] VITALS: BP 126/72
[2021-01-04 10:55] LABS: BASO # 0.1 x10^3/uL (0.0-0.2); BASO % 1 % (0-3); EOS # 0.2 x10^3/uL (0.0-0.7); EOS % 4 % (0-3); HEMATOCRIT 35.8 % (36.0-47.0); HEMOGLOBIN 12.1 g/dL (12.0-15.5); LYMPH # 1.3 x10^3/uL (1.0-4.8); LYMPH % 27 % (24-48); MEAN CORPUSCULAR HEMOGLOBIN 31 pg (25-35); MEAN CORPUSCULAR HGB CONC 34 g/dL (31-37); MEAN CORPUSCULAR VOLUME 91 fL (79-100); MONO # 0.3 x10^3/uL (0.0-1.1); MONO % 7 % (0-9); NEUT # 3.2 x10^3/uL (1.8-7.7); NEUT % 62 % (31-73); PLATELET COUNT 265 x10^3/uL (140-400); RED BLOOD COUNT 3.94 x10^6/uL (3.50-5.40); RED CELL DISTRIBUTION WIDTH 16.5 % (11.5-14.5); WHITE BLOOD COUNT 5.1 x10^3/uL (4.0-11.0)
[2021-01-04 10:58] LABS: CREATININE 0.9 mg/dL (0.6-1.0); GFR 61.2; POTASSIUM 3.7 mmol/L (3.5-5.1)
[2021-01-04 11:10] LABS: ALBUMIN 3.2 g/dL (3.4-5.0); TOTAL BILIRUBIN 1.4 mg/dL (0.2-1.0); TOTAL PROTEIN 6.4 g/dL (6.4-8.2)
== END ==
LOC: ONCLAB 10:33
PROVIDERS: ATTEND Internal Medicine Hematology & Oncology
DX: C50.411 Malignant neoplasm of upper-outer quadrant of right female breast (principal)
CPT/HCPCS: 36415; 80053; 85025

== ENCOUNTER → 2021-01-25 | Outpatient (CLI) | payer MEDICARE ==
[2020-09-06 10:41] VITALS: BP 126/72
[2021-01-25 11:01] LABS: BASO % 1 % (0-3); EOS # 0.2 x10^3/uL (0.0-0.7); EOS % 3 % (0-3); HEMATOCRIT 37.9 % (36.0-47.0); HEMOGLOBIN 12.6 g/dL (12.0-15.5); LYMPH # 1.9 x10^3/uL (1.0-4.8); LYMPH % 29 % (24-48); MEAN CORPUSCULAR HEMOGLOBIN 31 pg (25-35); MEAN CORPUSCULAR HGB CONC 33 g/dL (31-37); MEAN CORPUSCULAR VOLUME 92 fL (79-100); MONO # 0.4 x10^3/uL (0.0-1.1); MONO % 7 % (0-9); NEUT % 61 % (31-73); PLATELET COUNT 168 x10^3/uL (140-400); RED BLOOD COUNT 4.12 x10^6/uL (3.50-5.40); WHITE BLOOD COUNT 6.6 x10^3/uL (4.0-11.0)
[2021-01-25 11:05] LABS: CALCIUM 8.9 mg/dL (8.5-10.1); CREATININE 0.9 mg/dL (0.6-1.0); GFR 61.2; POTASSIUM 3.5 mmol/L (3.5-5.1)
[2021-01-25 11:11] LABS: ALBUMIN 3.7 g/dL (3.4-5.0); ALBUMIN/GLOBULIN RATIO 1.3 (1.0-1.7); TOTAL BILIRUBIN 1.8 mg/dL (0.2-1.0); TOTAL PROTEIN 6.5 g/dL (6.4-8.2)
== END ==
LOC: ONCLAB 10:09
PROVIDERS: ATTEND Internal Medicine Hematology & Oncology
DX: C50.411 Malignant neoplasm of upper-outer quadrant of right female breast (principal)
CPT/HCPCS: 36415; 80053; 85025

== ENCOUNTER → 2021-02-15 | Outpatient (CLI) | payer MEDICARE ==
[2020-09-06 10:41] VITALS: BP 126/72
[2021-02-15 10:32] LABS: BASO % 1 % (0-3); EOS # 0.3 x10^3/uL (0.0-0.7); EOS % 4 % (0-3); HEMATOCRIT 38.5 % (36.0-47.0); HEMOGLOBIN 12.8 g/dL (12.0-15.5); LYMPH # 2.1 x10^3/uL (1.0-4.8); LYMPH % 33 % (24-48); MEAN CORPUSCULAR HEMOGLOBIN 31 pg (25-35); MEAN CORPUSCULAR HGB CONC 33 g/dL (31-37); MEAN CORPUSCULAR VOLUME 93 fL (79-100); MONO # 0.5 x10^3/uL (0.0-1.1); MONO % 8 % (0-9); NEUT # 3.6 x10^3/uL (1.8-7.7); NEUT % 55 % (31-73); PLATELET COUNT 208 x10^3/uL (140-400); RED BLOOD COUNT 4.14 x10^6/uL (3.50-5.40); RED CELL DISTRIBUTION WIDTH 13.8 % (11.5-14.5); WHITE BLOOD COUNT 6.4 x10^3/uL (4.0-11.0)
[2021-02-15 12:41] LABS: ALBUMIN 3.8 g/dL (3.4-5.0); ALBUMIN/GLOBULIN RATIO 1.3 (1.0-1.7); CALCIUM 9.1 mg/dL (8.5-10.1); CREATININE 0.8 mg/dL (0.6-1.0); GFR 70.1; POTASSIUM 3.6 mmol/L (3.5-5.1); TOTAL BILIRUBIN 1.6 mg/dL (0.2-1.0); TOTAL PROTEIN 6.8 g/dL (6.4-8.2)
== END ==
LOC: ONCLAB 09:38
PROVIDERS: ATTEND Internal Medicine Hematology & Oncology
DX: C50.411 Malignant neoplasm of upper-outer quadrant of right female breast (principal)
CPT/HCPCS: 36415; 80053; 85025

== ENCOUNTER → 2021-02-15 | Outpatient (CLI) | payer MEDICARE ==
[2020-09-06 10:41] VITALS: BP 126/72
--- NOTE | 2021-02-15 14:30 | RAD ---
US DPLX VENOUS EXTREMITY UPPER RT History: Swelling Comparison: None. Procedure: Color flow Doppler, Doppler spectral analysis, and 2D images are obtained with and without compression in the jugular vein, subclavian vein, axillary vein, brachial vein, radial vein, ulnar v ein, and basilic and cephalic veins. Findings: There is normal color flow, augmentation, and compressibility of all visualized vein segments. No carmen dence of deep venous thrombus is present. IMPRESSION: 1. No evidence of right upper extremity deep venous thrombosis. Electronically signed by: Luca Garcia DO (02/15/2021 2:27 PM) [facility]
== END ==
LOC: US 12:46
PROVIDERS: ATTEND Internal Medicine Hematology & Oncology
DX: I97.2 Postmastectomy lymphedema syndrome (principal); R22.31 Localized swelling, mass and lump, right upper limb
CPT/HCPCS: 36415; 80053; 85025; 93971

== ENCOUNTER → 2021-03-08 | Outpatient (CLI) | payer MEDICARE ==
[2020-09-06 10:41] VITALS: BP 126/72
[2021-03-08 10:55] LABS: BASO % 1 % (0-3); EOS # 0.2 x10^3/uL (0.0-0.7); EOS % 3 % (0-3); HEMOGLOBIN 12.9 g/dL (12.0-15.5); LYMPH # 2.2 x10^3/uL (1.0-4.8); LYMPH % 35 % (24-48); MEAN CORPUSCULAR HEMOGLOBIN 30 pg (25-35); MEAN CORPUSCULAR HGB CONC 33 g/dL (31-37); MEAN CORPUSCULAR VOLUME 92 fL (79-100); MONO # 0.5 x10^3/uL (0.0-1.1); MONO % 8 % (0-9); NEUT # 3.3 x10^3/uL (1.8-7.7); NEUT % 53 % (31-73); PLATELET COUNT 200 x10^3/uL (140-400); RED BLOOD COUNT 4.26 x10^6/uL (3.50-5.40); RED CELL DISTRIBUTION WIDTH 13.3 % (11.5-14.5); WHITE BLOOD COUNT 6.2 x10^3/uL (4.0-11.0)
[2021-03-08 11:02] LABS: CALCIUM 9.2 mg/dL (8.5-10.1); CREATININE 0.8 mg/dL (0.6-1.0); GFR 70.1; POTASSIUM 3.3 mmol/L (3.5-5.1)
[2021-03-08 11:09] LABS: ALBUMIN 3.8 g/dL (3.4-5.0); ALBUMIN/GLOBULIN RATIO 1.3 (1.0-1.7); TOTAL BILIRUBIN 1.4 mg/dL (0.2-1.0); TOTAL PROTEIN 6.8 g/dL (6.4-8.2)
== END ==
LOC: ONCLAB 08:34
PROVIDERS: ATTEND Physician Assistant
DX: C50.411 Malignant neoplasm of upper-outer quadrant of right female breast (principal)
CPT/HCPCS: 36415; 80053; 85025

== ENCOUNTER → 2021-03-10 | Outpatient (CLI) | payer MEDICARE ==
[2020-09-06 10:41] VITALS: BP 126/72
--- NOTE | 2021-03-10 10:08 | RAD ---
EXAMINATION: US ABDOMEN COMPLETE INDICATION: 75 years, Female, elevated bilirubin. COMPARISON: 03/12/2017 TECHNIQUE: Grayscale, color Doppler and limited spectral Doppler images of the abdomen were obtained. FINDINGS: LIVER: SIZE (LENGTH): 21 cm. ECHOGENICITY: Increased PARENCHYMA: Heterogeneous echotexture echotexture. No discrete focal lesion. INTRAHEPATIC BILE DUCTS: Nondilated. PORTAL VEIN: Patent with normal hepatopedal flow. GALLBLADDER: GALLBLADDER WALL THICKNESS: 2 mm MORPHOLOGY: Normal morphology. No wall hyperemia or pericholecystic free fluid. LUMEN: Normal. COMMON BILE DUCT DIAMETER: 4 mm LEFT KIDNEY: MEASURES: 13.2 cm in length MORPHOLOGY/PARENCHYMA: Normal corticomedullary differentiation with no shadowing calculus. There is a 2.0 cm hyperechoic lesion in the upper pole cortex, corresponds to fat density lesion seen on previo us CT exam and most consistent with angiomyolipoma. COLLECTING SYSTEM: No hydronephrosis. RIGHT KIDNEY: MEASURES: 11.9 cm in length MORPHOLOGY/PARENCHYMA: Normal corticomedullary differentiation with no shadowing calculus. There is a 6.0 x 4.8 cm simple appearing cyst exophytic from the lower pole, stable essentially unchanged in si ze since prior exam. COLLECTING SYSTEM: No hydronephrosis. SPLEEN: SIZE (LENGTH): 12.6 cm. PARENCHYMA: Unremarkable. PANCREAS: VISUALIZED PORTIONS: Head and proximal body APPEARANCE: Within normal limits. OTHER: RETROPERITONEUM, INFERIOR VENA CAVA: Normal caliber. AORTA: Normal caliber measures up to 2.3 cm cm FLUID:No free fluid. IMPRESSION: 1. No biliary ductal dilation. Unremarkable sonographic appearance of the gallbladder. 2. Mild hepatomegaly with moderate diffuse steatosis. 3. Simple 6.0 cm right renal cyst, essentially unchanged in size since 2017. 4. Hyperechoic 2.0 cm solid lesion in the upper pole left renal cortex, corresponds to fat density le lore seen on previous CT exam and most consistent with angiomyolipoma. Electronically signed by: Anuja Armando MD (03/10/2021 10:06 AM) [id number]
== END ==
LOC: US 08:44
PROVIDERS: ATTEND Physician Assistant
DX: E80.6 Other disorders of bilirubin metabolism (principal); K76.0 Fatty (change of) liver, not elsewhere classified; R16.0 Hepatomegaly, not elsewhere classified
CPT/HCPCS: 76700

== ENCOUNTER → 2021-03-29 | Outpatient (CLI) | payer MEDICARE ==
[2020-09-06 10:41] VITALS: BP 126/72
[2021-03-29 10:03] LABS: BASO % 1 % (0-3); EOS # 0.2 x10^3/uL (0.0-0.7); EOS % 3 % (0-3); HEMATOCRIT 40.3 % (36.0-47.0); HEMOGLOBIN 13.5 g/dL (12.0-15.5); LYMPH # 2.2 x10^3/uL (1.0-4.8); LYMPH % 35 % (24-48); MEAN CORPUSCULAR HEMOGLOBIN 30 pg (25-35); MEAN CORPUSCULAR HGB CONC 34 g/dL (31-37); MEAN CORPUSCULAR VOLUME 90 fL (79-100); MONO # 0.5 x10^3/uL (0.0-1.1); MONO % 7 % (0-9); NEUT # 3.5 x10^3/uL (1.8-7.7); NEUT % 55 % (31-73); PLATELET COUNT 190 x10^3/uL (140-400); RED BLOOD COUNT 4.47 x10^6/uL (3.50-5.40); RED CELL DISTRIBUTION WIDTH 13.4 % (11.5-14.5); WHITE BLOOD COUNT 6.5 x10^3/uL (4.0-11.0)
[2021-03-29 10:18] LABS: CALCIUM 9.2 mg/dL (8.5-10.1); CREATININE 0.9 mg/dL (0.6-1.0); GFR 61.2; POTASSIUM 3.6 mmol/L (3.5-5.1)
[2021-03-29 10:21] LABS: ALBUMIN 3.9 g/dL (3.4-5.0); ALBUMIN/GLOBULIN RATIO 1.3 (1.0-1.7); TOTAL BILIRUBIN 1.3 mg/dL (0.2-1.0); TOTAL PROTEIN 6.9 g/dL (6.4-8.2)
== END ==
LOC: ONCLAB 09:34
PROVIDERS: ATTEND Physician Assistant
DX: C50.411 Malignant neoplasm of upper-outer quadrant of right female breast (principal)
CPT/HCPCS: 36415; 80053; 85025

== ENCOUNTER → 2021-03-29 | Outpatient (CLI) | payer MEDICARE ==
[2020-09-06 10:41] VITALS: BP 126/72
--- NOTE | 2021-03-29 22:29 | CARD ---
MR#: [id number] Date of Study: 03/29/2021 Ordering Physician: HEIDI HI, Referring Physician: HEIDI HI, Tech: Candace Avina, [facility] [place] APPROVED REPORT EXAM: Two-dimensional and M-mode echocardiogram with Doppler and color Doppler. Other Information Quality : Technically LimitedHR: 75bpm Rhythm : NSRTechnically limited study due to body habitus. INDICATION Dyspnea 2D DIMENSIONS Left Atrium(2D)3.6 (1.6-4.0cm)IVSd1.1 (0.7-1.1cm) Aortic Root(2D)3.2 (2.0-3.7cm)LVDd4.8 (3.9-5.9cm) LVOT Diameter2.2 (1.8-2.4cm)PWd1.1 (0.7-1.1cm) LVDs4.0 (2.5-4.0cm)FS (%) 17.2 % SV38.7 mlLVEF(%)35.8 (>50%) Tricuspid Valve TR P. Cgaaslmx984nr/sTR Peak Gr.18mmHg LEFT VENTRICLE The left ventricle is normal size. There is borderline to mild concentric left ventricular hypertroph y. The left ventricular systolic function is normal and the ejection fraction is within normal range. Estimated ejection fraction 55-60%. There is normal LV segmental wall motion. RIGHT VENTRICLE The right ventricle is normal size. There is normal right ventricular wall thickness. The right ventr icular systolic function is normal. ATRIA The left atrium size is normal. The right atrium size is normal. AORTIC VALVE The aortic valve is normal in structure and function. There is no significant aortic valvular stenosi s. MITRAL VALVE The mitral valve is normal in structure and function. There is no evidence of mitral valve prolapse. There is no mitral valve stenosis. TRICUSPID VALVE The tricuspid valve is normal in structure and function. Doppler and Color Flow revealed trace tricus pid regurgitation. Estimated PAP 21 mmHg. There is no tricuspid valve stenosis. GREAT VESSELS The aortic root is normal in size. The ascending aorta is mildly dilated at 3.6 cm. The IVC is normal in size and collapses >50% with inspiration. PERICARDIAL EFFUSION There is no evidence of significant pericardial effusion. Critical Notification Critical Value: No <Conclusion> The left ventricular systolic function is normal and the ejection fraction is within normal range. E stimated ejection fraction 55-60%. There is normal LV segmental wall motion. The ascending aorta is mildly dilated at 3.6 cm. Limited echo only for EF. Signed by : He Montero, Electronically Approved : 03/29/2021 22:28:35
== END ==
LOC: ECHO 08:41
PROVIDERS: ATTEND Physician Assistant
DX: C50.411 Malignant neoplasm of upper-outer quadrant of right female breast (principal); I51.7 Cardiomegaly
CPT/HCPCS: 93308

== ENCOUNTER → 2021-03-30 | Outpatient (CLI) | payer MEDICARE ==
[2020-09-06 10:41] VITALS: BP 126/72
[~2021-03-30] MED LIST changes: +ANAS1TAB47 PO; +BENA20TA84 PO; +OMEG100021 PO; +POTA10TA12 PO
--- NOTE | 2021-03-30 15:53 | RAD ---
Examination: LEFT LOWER EXTREMITY - UNILATERAL VENOUS DOPPLER Technique: Ultrasound evaluation of the left lower extremity was performed from the groin to the uppe r calf with melvin scale, spectral and color doppler evaluation. Indication: Leg swelling Comparison: None Findings: There is normal venous flow and compressibility of left common femoral vein, femoral vein, popliteal vein, and visualized proximal calf veins. Soft tissue swelling in the left calf. Impression: No evidence for deep vein thrombosis of left lower extremity from the level of the calf v eins to the groins. Electronically signed by: Parth Driver MD (03/30/2021 3:50 PM) [facility]
== END ==
LOC: RAD 14:21
PROVIDERS: ATTEND Physician Assistant
DX: C50.411 Malignant neoplasm of upper-outer quadrant of right female breast (principal); M79.89 Other specified soft tissue disorders
CPT/HCPCS: 93971

== ENCOUNTER → 2021-04-18 | Outpatient (CLI) | payer MEDICARE ==
[2020-09-06 10:41] VITALS: BP 126/72
[~2021-04-18] MED LIST changes: -ANAS1TAB47 PO; -BENA20TA84 PO; -OMEG100021 PO; -POTA10TA12 PO
[2021-04-18 11:01] LABS: BASO % 1 % (0-3); EOS # 0.2 x10^3/uL (0.0-0.7); EOS % 3 % (0-3); HEMOGLOBIN 13.5 g/dL (12.0-15.5); LYMPH # 2.1 x10^3/uL (1.0-4.8); LYMPH % 33 % (24-48); MEAN CORPUSCULAR HEMOGLOBIN 30 pg (25-35); MEAN CORPUSCULAR HGB CONC 34 g/dL (31-37); MEAN CORPUSCULAR VOLUME 89 fL (79-100); MONO # 0.3 x10^3/uL (0.0-1.1); MONO % 6 % (0-9); NEUT # 3.6 x10^3/uL (1.8-7.7); NEUT % 58 % (31-73); PLATELET COUNT 180 x10^3/uL (140-400); RED CELL DISTRIBUTION WIDTH 13.2 % (11.5-14.5); WHITE BLOOD COUNT 6.2 x10^3/uL (4.0-11.0)
[2021-04-18 11:11] LABS: CALCIUM 9.5 mg/dL (8.5-10.1); CREATININE 0.9 mg/dL (0.6-1.0); GFR 61.2; POTASSIUM 3.4 mmol/L (3.5-5.1)
[2021-04-18 11:17] LABS: ALBUMIN 3.5 g/dL (3.4-5.0); ALBUMIN/GLOBULIN RATIO 1.1 (1.0-1.7); TOTAL BILIRUBIN 1.5 mg/dL (0.2-1.0); TOTAL PROTEIN 6.7 g/dL (6.4-8.2)
== END ==
LOC: ONCLAB 10:28
PROVIDERS: ATTEND Physician Assistant
DX: C50.411 Malignant neoplasm of upper-outer quadrant of right female breast (principal)
CPT/HCPCS: 36415; 80053; 85025

== ENCOUNTER → 2021-05-09 | Outpatient (CLI) | payer MEDICARE ==
[2020-09-06 10:41] VITALS: BP 126/72
[2021-05-09 11:10] LABS: BASO % 1 % (0-3); EOS # 0.1 x10^3/uL (0.0-0.7); EOS % 2 % (0-3); HEMATOCRIT 40.6 % (36.0-47.0); HEMOGLOBIN 13.8 g/dL (12.0-15.5); LYMPH % 33 % (24-48); MEAN CORPUSCULAR HEMOGLOBIN 30 pg (25-35); MEAN CORPUSCULAR HGB CONC 34 g/dL (31-37); MEAN CORPUSCULAR VOLUME 88 fL (79-100); MONO # 0.5 x10^3/uL (0.0-1.1); MONO % 8 % (0-9); NEUT # 3.4 x10^3/uL (1.8-7.7); NEUT % 57 % (31-73); PLATELET COUNT 186 x10^3/uL (140-400); RED BLOOD COUNT 4.62 x10^6/uL (3.50-5.40); RED CELL DISTRIBUTION WIDTH 13.8 % (11.5-14.5)
[2021-05-09 11:58] LABS: CALCIUM 9.1 mg/dL (8.5-10.1); GFR 54.2; POTASSIUM 3.6 mmol/L (3.5-5.1)
[2021-05-09 12:18] LABS: ALBUMIN 3.6 g/dL (3.4-5.0); ALBUMIN/GLOBULIN RATIO 1.2 (1.0-1.7); TOTAL BILIRUBIN 1.5 mg/dL (0.2-1.0); TOTAL PROTEIN 6.7 g/dL (6.4-8.2)
== END ==
LOC: ONCLAB 09:03
PROVIDERS: ATTEND Physician Assistant
DX: C50.411 Malignant neoplasm of upper-outer quadrant of right female breast (principal)
CPT/HCPCS: 36415; 80053; 85025

== ENCOUNTER → 2021-05-09 | Outpatient (CLI) | payer MEDICARE ==
[2020-09-06 10:41] VITALS: BP 126/72
[2021-05-09 13:11] LABS: ALBUMIN 3.7 g/dL (3.4-5.0); ALBUMIN/GLOBULIN RATIO 1.2 (1.0-1.7); CALCIUM 9.4 mg/dL (8.5-10.1); CREATININE 0.9 mg/dL (0.6-1.0); GFR 61.2; POTASSIUM 3.6 mmol/L (3.5-5.1); TOTAL BILIRUBIN 1.6 mg/dL (0.2-1.0); TOTAL PROTEIN 6.7 g/dL (6.4-8.2)
[2021-05-10 03:25] LABS: HEMOGLOBIN A1C 6.1 % (4.8-5.6)
== END ==
LOC: LAB 09:20
PROVIDERS: ATTEND Family Medicine
DX: E11.9 Type 2 diabetes mellitus without complications (principal)
CPT/HCPCS: 36415; 80053; 83036

== ENCOUNTER → 2021-05-31 | Outpatient (CLI) | payer MEDICARE ==
[2020-09-06 10:41] VITALS: BP 126/72
[2021-05-31 08:27] LABS: BASO % 1 % (0-3); EOS # 0.2 x10^3/uL (0.0-0.7); EOS % 4 % (0-3); HEMATOCRIT 39.7 % (36.0-47.0); HEMOGLOBIN 13.5 g/dL (12.0-15.5); LYMPH # 1.8 x10^3/uL (1.0-4.8); LYMPH % 32 % (24-48); MEAN CORPUSCULAR HEMOGLOBIN 30 pg (25-35); MEAN CORPUSCULAR HGB CONC 34 g/dL (31-37); MEAN CORPUSCULAR VOLUME 88 fL (79-100); MONO # 0.5 x10^3/uL (0.0-1.1); MONO % 9 % (0-9); NEUT # 3.2 x10^3/uL (1.8-7.7); NEUT % 55 % (31-73); PLATELET COUNT 196 x10^3/uL (140-400); RED BLOOD COUNT 4.51 x10^6/uL (3.50-5.40); RED CELL DISTRIBUTION WIDTH 14.2 % (11.5-14.5); WHITE BLOOD COUNT 5.8 x10^3/uL (4.0-11.0)
[2021-05-31 08:38] LABS: CALCIUM 9.4 mg/dL (8.5-10.1); CREATININE 0.9 mg/dL (0.6-1.0); GFR 61.2; POTASSIUM 3.8 mmol/L (3.5-5.1)
[2021-05-31 08:41] LABS: ALBUMIN 3.6 g/dL (3.4-5.0); ALBUMIN/GLOBULIN RATIO 1.1 (1.0-1.7); TOTAL BILIRUBIN 1.5 mg/dL (0.2-1.0); TOTAL PROTEIN 6.9 g/dL (6.4-8.2)
== END ==
LOC: ONCLAB 08:08
PROVIDERS: ATTEND Physician Assistant
DX: C50.411 Malignant neoplasm of upper-outer quadrant of right female breast (principal)
CPT/HCPCS: 36415; 80053; 85025

== ENCOUNTER → 2021-07-04 | Outpatient (CLI) | payer MEDICARE ==
[2020-09-06 10:41] VITALS: BP 126/72
[2021-07-04 10:38] LABS: BASO % 1 % (0-3); EOS # 0.2 x10^3/uL (0.0-0.7); EOS % 4 % (0-3); HEMATOCRIT 40.5 % (36.0-47.0); HEMOGLOBIN 13.6 g/dL (12.0-15.5); LYMPH % 29 % (24-48); MEAN CORPUSCULAR HEMOGLOBIN 30 pg (25-35); MEAN CORPUSCULAR HGB CONC 34 g/dL (31-37); MEAN CORPUSCULAR VOLUME 89 fL (79-100); MONO # 0.4 x10^3/uL (0.0-1.1); MONO % 6 % (0-9); NEUT # 4.1 x10^3/uL (1.8-7.7); NEUT % 61 % (31-73); PLATELET COUNT 200 x10^3/uL (140-400); RED BLOOD COUNT 4.57 x10^6/uL (3.50-5.40); RED CELL DISTRIBUTION WIDTH 14.4 % (11.5-14.5); WHITE BLOOD COUNT 6.8 x10^3/uL (4.0-11.0)
[2021-07-04 10:49] LABS: CREATININE 0.8 mg/dL (0.6-1.0); GFR 70.1; POTASSIUM 3.9 mmol/L (3.5-5.1)
[2021-07-04 11:00] LABS: ALBUMIN 3.4 g/dL (3.4-5.0); TOTAL BILIRUBIN 1.6 mg/dL (0.2-1.0); TOTAL PROTEIN 6.7 g/dL (6.4-8.2)
== END ==
LOC: ONCLAB 10:09
PROVIDERS: ATTEND Physician Assistant
DX: C50.411 Malignant neoplasm of upper-outer quadrant of right female breast (principal)
CPT/HCPCS: 36415; 80053; 85025

== ENCOUNTER → 2021-07-10 | Outpatient (CLI) | payer MEDICARE ==
[2020-09-06 10:41] VITALS: BP 126/72
--- NOTE | 2021-07-10 10:29 | RAD ---
PROCEDURE: MG DIGITAL UNILAT DIAGNOSTIC MAMMO WITH SALTY HISTORY: The patient is 75 years old and is seen for Reason: FU RIGHT BREAST CANCER JUN 2020 / Spl. Instructions: LAST COVID SHOT DECEMBER 2019, PATIENT HAD COVID SET 2020 / History: . Right mastectomy. COMPARISON: June 16, 2020 TECHNIQUE: CC and MLO views of left breast was obtained. Images were processed by the [employer]-aided detection system. DENSITY: There are scattered fibroglandular densities. FINDINGS: Unchanged left upper outer breast mass, likely intramammary lymph node. Unchanged scatter ed benign-appearing calcifications. No new suspicious microcalcifications, mass or architectural dist ortion. IMPRESSION: Stable left breast mammogram compared to prior. Recommend annual screening mammograms per [employer] guidelines. She will be due in one year. BI-RADS category 2 Benign Patient entered into a reminder system for annual screening mammogram. Electronically signed by: Luca Garcia DO (07/10/2021 10:27 AM) [id number]
== END ==
LOC: MAMMO 09:41
PROVIDERS: ATTEND Physician Assistant
DX: N63.21 Unspecified lump in the left breast, upper outer quadrant (principal); Z85.3 Personal history of malignant neoplasm of breast
CPT/HCPCS: 77065; G0279; 77061

== ENCOUNTER → 2021-07-26 | Outpatient (CLI) | payer MEDICARE ==
[2020-09-06 10:41] VITALS: BP 126/72
[2021-07-26 10:01] LABS: BASO % 1 % (0-3); EOS # 0.2 x10^3/uL (0.0-0.7); EOS % 3 % (0-3); HEMATOCRIT 39.2 % (36.0-47.0); LYMPH # 1.9 x10^3/uL (1.0-4.8); LYMPH % 26 % (24-48); MEAN CORPUSCULAR HEMOGLOBIN 29 pg (25-35); MEAN CORPUSCULAR HGB CONC 33 g/dL (31-37); MEAN CORPUSCULAR VOLUME 89 fL (79-100); MONO # 0.5 x10^3/uL (0.0-1.1); MONO % 7 % (0-9); NEUT # 4.7 x10^3/uL (1.8-7.7); NEUT % 64 % (31-73); PLATELET COUNT 205 x10^3/uL (140-400); RED BLOOD COUNT 4.43 x10^6/uL (3.50-5.40); RED CELL DISTRIBUTION WIDTH 14.7 % (11.5-14.5); WHITE BLOOD COUNT 7.4 x10^3/uL (4.0-11.0)
[2021-07-26 10:17] LABS: CALCIUM 8.8 mg/dL (8.5-10.1); CREATININE 0.8 mg/dL (0.6-1.0); GFR 70.1; POTASSIUM 3.4 mmol/L (3.5-5.1)
[2021-07-26 10:24] LABS: ALBUMIN 3.4 g/dL (3.4-5.0); ALBUMIN/GLOBULIN RATIO 1.1 (1.0-1.7); TOTAL BILIRUBIN 1.6 mg/dL (0.2-1.0); TOTAL PROTEIN 6.5 g/dL (6.4-8.2)
== END ==
LOC: ONCLAB 09:45
PROVIDERS: ATTEND Internal Medicine Hematology & Oncology
DX: C50.411 Malignant neoplasm of upper-outer quadrant of right female breast (principal)
CPT/HCPCS: 36415; 80053; 85025

== ENCOUNTER → 2021-08-01 | Outpatient (CLI) | payer MEDICARE ==
[2020-09-06 10:41] VITALS: BP 126/72
--- NOTE | 2021-08-02 13:49 | CARD ---
MR#: [id number] Date of Study: 08/01/2021 Ordering Physician: HEIDI HI, Referring Physician: HEIDI HI, Tech: Christine Crump, [facility] APPROVED REPORT EXAM: Two-dimensional and M-mode echocardiogram with Doppler and color Doppler. Other Information Quality : AverageHR: 64bpm INDICATION Cancer RISK FACTORS Hypertension Diabetes 2D DIMENSIONS Left Atrium(2D)3.0 (1.6-4.0cm)IVSd1.1 (0.7-1.1cm) Aortic Root(2D)3.1 (2.0-3.7cm)LVDd5.8 (3.9-5.9cm) LVOT Diameter2.0 (1.8-2.4cm)PWd1.1 (0.7-1.1cm) LVDs4.1 (2.5-4.0cm)FS (%) 28.6 % SV89.6 ml Aortic Valve AoV Peak Yared.158.8cm/sAoV VTI34.9cm AO Peak GR.10.1mmHgLVOT Peak Yared.134.2cm/s LVOT VTI 29.35cmAO Mean GR.6mmHg WALTER (VMAX)1.55pu3KLU (VTI)2.61cm2 Mitral Valve MV E Acakgucw25.2cm/sMV DECEL [id number] MV A Voayxphz50.4cm/sMV E Mean Gr.2mmHg MV REN93leA/A Ratio0.9 MVA (PHT)3.72cm2 TDI E/Lateral E'13.9E/Medial E'13.2 Pulmonary Valve PV Peak Vobvhwov810.4cm/sPV Peak Grad.4mmHg Tricuspid Valve TR P. Lfldhkiu014qr/sTR Peak Gr.26mmHg Pulmonary Vein S1 Kkbawyux17.8cm/sD2 Ufzdykhb82.5cm/s PVa [id number] LEFT VENTRICLE The left ventricle is normal size. There is mild concentric left ventricular hypertrophy. The left ve ntricular systolic function is normal and the ejection fraction is within normal range. The Ejection Fraction is 50-55%. There is normal LV segmental wall motion. Transmitral Doppler flow pattern is Gra de I-abnormal relaxation pattern. RIGHT VENTRICLE The right ventricle is normal size. There is normal right ventricular wall thickness. The right ventr icular systolic function is normal. ATRIA The left atrium size is normal. The right atrium size is normal. The interatrial septum is intact wit h no evidence for an atrial septal defect or patent foramen ovale as noted on 2-D or Doppler imaging. AORTIC VALVE The aortic valve is normal in structure and function. Doppler and Color Flow revealed trace aortic re gurgitation. There is no significant aortic valvular stenosis. Calculated aortic valve area is 2.52 c m2 with maximum pressure gradient of 13 mmHg and mean pressure gradient of 6 mmHg. MITRAL VALVE The mitral valve is normal in structure and function. There is no evidence of mitral valve prolapse. There is no mitral valve stenosis. Doppler and Color-flow revealed trace mitral regurgitation. TRICUSPID VALVE The tricuspid valve is normal in structure and function. Doppler and Color Flow revealed trace tricus pid regurgitation with an estimated PAP of 36 mmHg. There is no tricuspid valve stenosis. PULMONIC VALVE The pulmonic valve is not well visualized. Doppler and Color Flow revealed no pulmonic valvular regur gitation. GREAT VESSELS The aortic root is normal in size. The ascending aorta is mildly dilated measuring 3.4 cm The IVC is dilated. PERICARDIAL EFFUSION There is no evidence of significant pericardial effusion. Critical Notification Critical Value: No <Conclusion> The left ventricle is normal size. The left ventricular systolic function is normal and the ejection fraction is within normal range. The Ejection Fraction is 50-55%. There is normal LV segmental wall motion. There is mild concentric left ventricular hypertrophy. Doppler and Color Flow revealed trace aortic regurgitation. There is no significant aortic valvular stenosis. Doppler and Color-flow revealed trace mitral regurgitation. Doppler and Color Flow revealed trace tricuspid regurgitation with an estimated PAP of 36 mmHg. The ascending aorta is mildly dilated measuring 3.4 cm Signed by : Kash Schwab MD Electronically Approved : 08/02/2021 13:49:04
== END ==
LOC: ECHO 08:48
PROVIDERS: ATTEND Physician Assistant
DX: I51.7 Cardiomegaly (principal); C50.411 Malignant neoplasm of upper-outer quadrant of right female breast
CPT/HCPCS: 93306

== ENCOUNTER → 2021-08-15 | Outpatient (CLI) | payer MEDICARE ==
[2020-09-06 10:41] VITALS: BP 126/72
[2021-08-15 09:11] LABS: BASO % 1 % (0-3); EOS # 0.2 x10^3/uL (0.0-0.7); EOS % 3 % (0-3); HEMATOCRIT 40.1 % (36.0-47.0); HEMOGLOBIN 13.4 g/dL (12.0-15.5); LYMPH # 1.8 x10^3/uL (1.0-4.8); LYMPH % 30 % (24-48); MEAN CORPUSCULAR HEMOGLOBIN 30 pg (25-35); MEAN CORPUSCULAR HGB CONC 33 g/dL (31-37); MEAN CORPUSCULAR VOLUME 89 fL (79-100); MONO # 0.5 x10^3/uL (0.0-1.1); MONO % 7 % (0-9); NEUT # 3.6 x10^3/uL (1.8-7.7); NEUT % 59 % (31-73); PLATELET COUNT 200 x10^3/uL (140-400); RED CELL DISTRIBUTION WIDTH 14.7 % (11.5-14.5); WHITE BLOOD COUNT 6.1 x10^3/uL (4.0-11.0)
[2021-08-15 09:31] LABS: CALCIUM 8.9 mg/dL (8.5-10.1); CREATININE 0.7 mg/dL (0.6-1.0); GFR 81.8; POTASSIUM 3.4 mmol/L (3.5-5.1)
[2021-08-15 09:38] LABS: ALBUMIN 3.6 g/dL (3.4-5.0); ALBUMIN/GLOBULIN RATIO 1.2 (1.0-1.7); TOTAL BILIRUBIN 1.8 mg/dL (0.2-1.0); TOTAL PROTEIN 6.6 g/dL (6.4-8.2)
== END ==
LOC: ONCLAB 08:43
PROVIDERS: ATTEND Physician Assistant
DX: C50.411 Malignant neoplasm of upper-outer quadrant of right female breast (principal)
CPT/HCPCS: 36415; 80053; 85025

== ENCOUNTER → 2021-08-16 | Outpatient (CLI) | payer MEDICARE ==
[2020-09-06 10:41] VITALS: BP 126/72
--- NOTE | 2021-08-16 12:51 | RAD ---
EXAM: Left lower extremity venous Doppler. HISTORY: Left lower extremity pain/swelling. COMPARISON: None. FINDINGS: Grayscale and Doppler analysis of the left lower extremity deep venous system was performed with graded compression and augmentation. The common femoral, greater saphenous, superficial femoral , popliteal and calf veins were assessed. There is no evidence of deep venous thrombosis. IMPRESSION: 1. No evidence of deep venous thrombosis. Electronically signed by: Alexsander Osman MD (08/16/2021 12:49 PM) [id number]
== END ==
LOC: US 11:57
PROVIDERS: ATTEND Physician Assistant
DX: M79.605 Pain in left leg (principal); R22.43 Localized swelling, mass and lump, lower limb, bilateral
CPT/HCPCS: 93971

== ENCOUNTER → 2021-09-06 | Outpatient (CLI) | payer MEDICARE ==
[2020-09-06 10:41] VITALS: BP 126/72
[2021-09-06 11:09] LABS: BASO % 1 % (0-3); EOS # 0.2 x10^3/uL (0.0-0.7); EOS % 4 % (0-3); HEMATOCRIT 41.6 % (36.0-47.0); HEMOGLOBIN 13.6 g/dL (12.0-15.5); LYMPH # 1.6 x10^3/uL (1.0-4.8); LYMPH % 29 % (24-48); MEAN CORPUSCULAR HEMOGLOBIN 29 pg (25-35); MEAN CORPUSCULAR HGB CONC 33 g/dL (31-37); MEAN CORPUSCULAR VOLUME 89 fL (79-100); MONO # 0.4 x10^3/uL (0.0-1.1); MONO % 7 % (0-9); NEUT # 3.3 x10^3/uL (1.8-7.7); NEUT % 59 % (31-73); PLATELET COUNT 206 x10^3/uL (140-400); RED BLOOD COUNT 4.68 x10^6/uL (3.50-5.40); RED CELL DISTRIBUTION WIDTH 14.4 % (11.5-14.5); WHITE BLOOD COUNT 5.5 x10^3/uL (4.0-11.0)
[2021-09-06 11:18] LABS: CALCIUM 8.8 mg/dL (8.5-10.1); CREATININE 0.8 mg/dL (0.6-1.0); GFR 70.1; POTASSIUM 3.4 mmol/L (3.5-5.1)
[2021-09-06 11:23] LABS: ALBUMIN 3.5 g/dL (3.4-5.0); TOTAL BILIRUBIN 1.8 mg/dL (0.2-1.0)
== END ==
LOC: ONCLAB 10:53
PROVIDERS: ATTEND Physician Assistant
DX: C50.411 Malignant neoplasm of upper-outer quadrant of right female breast (principal)
CPT/HCPCS: 36415; 80053; 85025

== ENCOUNTER → 2021-09-27 | Outpatient (CLI) | payer MEDICARE ==
[2020-09-06 10:41] VITALS: BP 126/72
[2021-09-27 11:22] LABS: BASO % 1 % (0-3); EOS # 0.2 x10^3/uL (0.0-0.7); EOS % 3 % (0-3); HEMATOCRIT 40.2 % (36.0-47.0); HEMOGLOBIN 13.6 g/dL (12.0-15.5); LYMPH # 1.7 x10^3/uL (1.0-4.8); LYMPH % 27 % (24-48); MEAN CORPUSCULAR HEMOGLOBIN 29 pg (25-35); MEAN CORPUSCULAR HGB CONC 34 g/dL (31-37); MEAN CORPUSCULAR VOLUME 87 fL (79-100); MONO # 0.4 x10^3/uL (0.0-1.1); MONO % 7 % (0-9); NEUT % 63 % (31-73); PLATELET COUNT 210 x10^3/uL (140-400); RED BLOOD COUNT 4.62 x10^6/uL (3.50-5.40); WHITE BLOOD COUNT 6.3 x10^3/uL (4.0-11.0)
[2021-09-27 11:31] LABS: CALCIUM 8.6 mg/dL (8.5-10.1); CREATININE 0.8 mg/dL (0.6-1.0); GFR 70.1; POTASSIUM 3.5 mmol/L (3.5-5.1)
[2021-09-27 11:38] LABS: ALBUMIN 3.3 g/dL (3.4-5.0); ALBUMIN/GLOBULIN RATIO 0.9 (1.0-1.7); TOTAL BILIRUBIN 1.4 mg/dL (0.2-1.0)
== END ==
LOC: ONCLAB 11:04
PROVIDERS: ATTEND Internal Medicine Hematology & Oncology
DX: C50.411 Malignant neoplasm of upper-outer quadrant of right female breast (principal)
CPT/HCPCS: 36415; 80053; 85025

== ENCOUNTER 2021-10-13 08:49 | Outpatient (CLI) | payer MEDICARE ==
[2021-10-13] VITALS (9 sets, daily range): BP systolic 117–145; BP diastolic 69–82
[~2021-10-13] VITALS: Ht 175.3 cm; Wt 91.0 kg
[2021-10-13] MEDS ORDERED: POTA10TA12 PO (09:06)
[2021-10-13] MEDS ORDERED: OMEG100021 PO (09:06)
[2021-10-13] MEDS ORDERED: BENA20TA84 PO (09:06)
[2021-10-13] MEDS ORDERED: ANAS1TAB47 PO (09:06)
[2021-10-13 09:46] LABS: PROTHROMBIN TIME PATIENT 13.6 SEC (11.7-14.0)
[2021-10-13] MEDS ORDERED: MIDAZOLAM HCL/PF 5 MG/5 ML VIAL. IV ONE (10:30)
[2021-10-13] MEDS ORDERED: LIDOCAINE WITH 8.4% SOD BICARB 3 ML DISP.SYRIN. IJ ONE (10:30)
[2021-10-13] MEDS ORDERED: IODIXANOL 320 MG/ML 100 ML VIAL. IART ONE (10:30)
[2021-10-13] MEDS ORDERED: fentaNYL PF VIAL 100 MCG/2 ML VIAL IV ONE (10:30)
--- NOTE | 2021-10-13 12:19 | RAD ---
Left pelvic venogram INDICATION: Left lower extremity edema. Consent: The procedure was explained in its entirety to the patient or the patients designated repres entative by a member of the treatment team, including a discussion of the risks, benefits and commonl y accepted alternatives to the procedure, as well as the expected consequences of no therapy whatsoev er. Discussion of the risks included, but was not limited to, those that are most frequent and thos e that are rare but possibly severe or life-threatening, as well as the possibility of unforeseen com plications. The left groin was prepped and draped using sterile barrier technique. Ultrasound of the left lower e xtremity was performed demonstrating a patent common femoral vein, superficial femoral vein, and saph enous vein. The left common femoral vein was accessed using micropuncture technique. A 5 Thai sheat h was placed. Venograms were obtained for normal. I this was performed through the inferior IVC exten ding to the common femoral vein. No significant acute or chronic thrombus, compression, or other foca l abnormal normalities identified by this. The sheath was removed. Manual pressure was held. Total fluoroscopy time 1.3 minutes Dose area product 98 cm/s Sedation: The procedure was performed under conscious sedation including continuous cardiopulmonary m onitoring via a dedicated sedation nurse. Lqjl-ir-nqyv sedation time: 40 minutes IMPRESSION: Normal venographic and intravascular ultrasound assessment of the left pelvic veins witho ut evidence of May Thurner syndrome, acute/chronic thrombus, or significant stenosis/compression. Electronically signed by: Mitchel Sousa MD (10/13/2021 12:17 PM) [id number]
--- NOTE | 2021-10-13 13:24 | NUR ---
pt ambulated and tolerated PO. Port de accessed. groin care reviewed with patient and family. pt home in private vehicle with family.
== END 2021-10-13 13:00 | disposition home or self-care (01) ==
LOC: INTRAD 08:49
PROVIDERS: ATTEND Physician Assistant
DX: R60.0 Localized edema (principal); I10 Essential (primary) hypertension; E66.9 Obesity, unspecified; E11.9 Type 2 diabetes mellitus without complications; M10.9 Gout, unspecified; Z79.82 Long term (current) use of aspirin; Z79.84 Long term (current) use of oral hypoglycemic drugs; Z79.899 Other long term (current) drug therapy; Z98.890 Other specified postprocedural states
CPT/HCPCS: 36011; 36415; 37252; 75820; 76937; 85610; 99152; 99153; C1753; C1769; C1892; C1894; J1644; J2250; J3010; J3490; Q9967

== ENCOUNTER → 2021-10-23 | Outpatient (CLI) | payer MEDICARE ==
[2021-10-13 12:45] VITALS: BP 127/76
[~2021-10-23] MED LIST changes: +ANAS1TAB47 PO; +BENA20TA84 PO; +HEPARIN PF 500 UNIT/5 ML DISP.SYRIN. IVP ONE; +OMEG100021 PO; +POTA10TA12 PO
[2021-10-23 12:13] LABS: BASO % 1 % (0-3); EOS # 0.2 x10^3/uL (0.0-0.7); EOS % 2 % (0-3); HEMATOCRIT 41.1 % (36.0-47.0); HEMOGLOBIN 13.5 g/dL (12.0-15.5); LYMPH # 1.8 x10^3/uL (1.0-4.8); LYMPH % 23 % (24-48); MEAN CORPUSCULAR HEMOGLOBIN 29 pg (25-35); MEAN CORPUSCULAR HGB CONC 33 g/dL (31-37); MEAN CORPUSCULAR VOLUME 88 fL (79-100); MONO # 0.5 x10^3/uL (0.0-1.1); MONO % 6 % (0-9); NEUT # 5.2 x10^3/uL (1.8-7.7); NEUT % 68 % (31-73); PLATELET COUNT 247 x10^3/uL (140-400); RED BLOOD COUNT 4.64 x10^6/uL (3.50-5.40); RED CELL DISTRIBUTION WIDTH 13.9 % (11.5-14.5); WHITE BLOOD COUNT 7.7 x10^3/uL (4.0-11.0)
[2021-10-23 12:23] LABS: ALBUMIN 3.4 g/dL (3.4-5.0); CALCIUM 8.6 mg/dL (8.5-10.1); CREATININE 0.8 mg/dL (0.6-1.0); GFR 70.1; PHOSPHORUS 3.4 mg/dL (2.6-4.7); POTASSIUM 3.8 mmol/L (3.5-5.1)
[2021-10-23 21:13] LABS: UR PROTEIN 38.1 mg/dL (Not Estab.)
[2021-10-24 00:14] LABS: TOTAL SERUM CREATININE 0.82 mg/dL (0.57-1.00); TOTAL URINE CREATININE 117.9 mg/dL (Not Estab.)
== END ==
LOC: LAB 10:38
PROVIDERS: ATTEND Internal Medicine Nephrology
DX: I10 Essential (primary) hypertension (principal); E11.21 Type 2 diabetes mellitus with diabetic nephropathy; R80.9 Proteinuria, unspecified; N28.1 Cyst of kidney, acquired; E87.6 Hypokalemia
CPT/HCPCS: 80069; 82575; 84156; 85025; J1642; 36415

== ENCOUNTER → 2021-10-30 | Outpatient (CLI) | payer MEDICARE ==
[2021-10-13 12:45] VITALS: BP 127/76
[2021-10-30 09:11] LABS: ALBUMIN 3.5 g/dL (3.4-5.0); CALCIUM 8.7 mg/dL (8.5-10.1); CREATININE 0.7 mg/dL (0.6-1.0); GFR 81.8; POTASSIUM 3.7 mmol/L (3.5-5.1); TOTAL BILIRUBIN 1.6 mg/dL (0.2-1.0)
[2021-10-30 09:12] LABS: CHOLESTEROL/HDL RATIO 3.4
[2021-10-31 01:12] LABS: HEMOGLOBIN A1C 5.9 % (4.8-5.6)
== END ==
LOC: LAB 07:06
PROVIDERS: ATTEND Family Medicine
DX: E11.9 Type 2 diabetes mellitus without complications (principal); E55.9 Vitamin D deficiency, unspecified
CPT/HCPCS: 36591; 80053; 80061; 82306; 83036; 96523; J1642; 36415

== ENCOUNTER → 2021-11-27 | Outpatient (CLI) | payer MEDICARE ==
[2021-10-13 12:45] VITALS: BP 127/76
[~2021-11-27] MED LIST changes: -HEPARIN PF 500 UNIT/5 ML DISP.SYRIN. IVP ONE
[2021-11-27 09:25] LABS: BASO % 1 % (0-3); EOS # 0.2 x10^3/uL (0.0-0.7); EOS % 3 % (0-3); HEMATOCRIT 43.3 % (36.0-47.0); HEMOGLOBIN 13.9 g/dL (12.0-15.5); LYMPH # 1.9 x10^3/uL (1.0-4.8); LYMPH % 31 % (24-48); MEAN CORPUSCULAR HEMOGLOBIN 29 pg (25-35); MEAN CORPUSCULAR HGB CONC 32 g/dL (31-37); MEAN CORPUSCULAR VOLUME 89 fL (79-100); MONO # 0.4 x10^3/uL (0.0-1.1); MONO % 7 % (0-9); NEUT # 3.5 x10^3/uL (1.8-7.7); NEUT % 58 % (31-73); PLATELET COUNT 196 x10^3/uL (140-400); RED BLOOD COUNT 4.88 x10^6/uL (3.50-5.40); RED CELL DISTRIBUTION WIDTH 14.4 % (11.5-14.5)
[2021-11-27 09:42] LABS: CALCIUM 9.4 mg/dL (8.5-10.1); GFR 54.2
[2021-11-27 09:48] LABS: ALBUMIN 3.7 g/dL (3.4-5.0); ALBUMIN/GLOBULIN RATIO 1.1 (1.0-1.7); TOTAL BILIRUBIN 1.1 mg/dL (0.2-1.0)
== END ==
LOC: ONCLAB 09:07
PROVIDERS: ATTEND Physician Assistant
DX: C50.411 Malignant neoplasm of upper-outer quadrant of right female breast (principal)
CPT/HCPCS: 36415; 80053; 85025

== ENCOUNTER → 2022-01-25 | Outpatient (CLI) | payer MEDICARE ==
[2021-10-13 12:45] VITALS: BP 127/76
[2022-01-25 10:44] LABS: CALCIUM 9.2 mg/dL (8.5-10.1); CREATININE 0.8 mg/dL (0.6-1.0); GFR 69.9; POTASSIUM 3.4 mmol/L (3.5-5.1)
[2022-01-25 10:46] LABS: ALBUMIN 3.5 g/dL (3.4-5.0); PHOSPHORUS 3.3 mg/dL (2.6-4.7)
== END ==
LOC: ONCLAB 09:24
PROVIDERS: ATTEND Internal Medicine Hematology & Oncology
DX: I10 Essential (primary) hypertension (principal)
CPT/HCPCS: 36415; 80069